=== PATIENT | male | born 1990 | race Caucasian/White ===

== ENCOUNTER 2023-03-14 09:57 | Emergency (ER) | payer SELFPAY ==
[2023-03-14] MEDS ORDERED: Sodium Chloride 0.9% 1,000 ML IV STA (10:20)
[2023-03-14] MEDS ORDERED: Sodium Chloride 0.9% 10 ML Syringe FLUSH PRN (10:20)
[2023-03-14] MEDS ORDERED: Ondansetron 4 MG/2 ML SDV IVPUSH ONE (10:20)
[2023-03-14] MEDS ORDERED: Sodium Chloride 0.9% 10 ML Syringe FLUSH ONE (10:43)
[2023-03-14] MEDS ORDERED: Iopamidol 612 MG/ML 100 ML Bottle IVPUSH ONE (10:43)
[2023-03-14 10:54] LABS: BASOPHILS ABSOLUTE AUTO 0.01 K/mm3 (0.01-0.08); BASOPHILS PERCENT AUTO 0.1 % (0.1-1.2); EOSINOPHILS ABSOLUTE AUTO 0.53 K/mm3 (0.04-0.54); EOSINOPHILS PERCENT AUTO 4.9 (0.8-7.0); HEMATOCRIT 40.3 % (40.1-51.0); HEMOGLOBIN 13.7 gm/dl (13.7-17.5); IMMATURE GRAN ABSOLUTE AUTO 0.02 K/mm3 (0.00-0.10); IMMATURE GRAN PERCENT AUTO 0.2 % (<=1.0); LYMPHOCYTES ABSOLUTE AUTO 1.52 K/mm3 (1.32-3.57); LYMPHOCYTES PERCENT AUTO 14.2 % (21.8-53.1); MEAN CORPUSCULAR VOLUME 88.4 fl (79.0-92.2); MEAN PLATELET VOLUME 9.7 fl (9.4-12.3); MONOCYTES PERCENT AUTO 5.6 % (5.3-12.2); NEUTROPHILS ABSOLUTE AUTO 8.06 K/mm3 (1.78-5.38); PLATELET COUNT,PLT 198 K/mm3 (163-337); RED BLOOD CELL COUNT 4.56 M/mm3 (4.63-6.08); WHITE BLOOD CELL COUNT,WBC 10.74 K/mm3 (4.23-9.07)
[2023-03-14 11:24] LABS: A/G RATIO 1.1 (1-2); ALBUMIN 3.5 g/dl (3.4-5.0); ANION GAP 13.8 (5-15); BILIRUBIN TOTAL 0.3 mg/dL (0.2-1.0); BUN/CREATININE RATIO 14.5 (14-18); CALCIUM 8.7 mg/dL (8.5-10.1); CREATININE 1.1 mg/dL (0.7-1.3); EST CRCL DRUG DOSING (CG) 88.47 mL/min; POTASSIUM,K 3.8 mEq/L (3.5-5.1); PROTEIN TOTAL,TP 6.6 g/dl (6.4-8.2)
[2023-03-14 12:27] LABS: APPEARANCE,URINE CLEAR (Clear); BILIRUBIN,URINE NEGATIVE (Negative); COLOR,URINE LIGHT YELLOW (Yellow); GLUCOSE,URINE NEGATIVE (Negative); KETONES,URINE 2+ (Negative); LEUKOCYTE ESTERASE,URINE NEGATIVE (Negative); NITRITE,URINE NEGATIVE (Negative); OCCULT BLOOD,URINE 1+ (Negative); PROTEIN,URINE NEGATIVE (Negative); UROBILINOGEN,URINE 0.2 (0.2-1.0)
[2023-03-14 12:44] LABS: BACTERIA,URINE NOT SEEN /hpf (FEW); MUCUS,URINE NOT SEEN /hpf (FEW); SQUAMOUS EPITHELIAL CELLS,UR 0-5 /hpf (0-5); WBC,URINE NOT SEEN /hpf (0-5)
== END 2023-03-14 13:15 | disposition home or self-care (01) ==
LOC: JD.ED 09:57
DX: N13.2 Hydronephrosis with renal and ureteral calculous obstruction (principal); Z79.899 Other long term (current) drug therapy
CPT/HCPCS: 36415; 74177; 80053; 81001; 83690; 85025; 96361; 96374; 99285; J2405; J3490; J7030; Q9967; 99284